=== PATIENT | female | born 1950 | race Caucasian/White ===

== ENCOUNTER 2016-10-22 23:23 | Emergency (ER) | payer OTHER | END 2016-10-23 01:30 | disposition left against medical advice (07) | LOC: ER1 23:23 | DX: Z53.21 Procedure and treatment not carried out due to patient leaving prior to being seen by health care provider (principal) ==

== ENCOUNTER 2016-10-23 13:58 | Emergency (ER) | payer MEDICARE, OTHER ==
[2016-10-23 16:35] LABS: HEMOGLOBIN 13.2 gm/dl (12.3-15.3); RED BLOOD COUNT 4.33 M/UL (4.00-5.10); WHITE BLOOD COUNT 6.7 K/UL (4.5-11.0)
[2016-10-23 17:04] LABS: BUN/CREATININE RATIO 20 (0-10)
== END 2016-10-23 18:10 | disposition home or self-care (01) ==
LOC: ER1 13:58
PROVIDERS: Emergency Medicine
DX: R42 Dizziness and giddiness (principal); I10 Essential (primary) hypertension; Z88.0 Allergy status to penicillin; Z88.5 Allergy status to narcotic agent
CPT/HCPCS: 36415; 74022; 80053; 81001; 82550; 82553; 83605; 83690; 83874; 84484; 85025; 87086; 93005; 96361; 96374; 99284; J2405; J7030

== ENCOUNTER → 2016-11-06 | Outpatient (CLI) | payer MEDICARE, OTHER | LOC: US 13:00 | DX: R41.3 Other amnesia (principal); R42 Dizziness and giddiness; Z86.73 Personal history of transient ischemic attack (TIA), and cerebral infarction without residual deficits; I65.23 Occlusion and stenosis of bilateral carotid arteries | CPT/HCPCS: 70450; 93880 ==

== ENCOUNTER → 2017-01-08 | Outpatient (CLI) | payer MEDICARE, OTHER | LOC: HEART 5 09:22 | DX: I50.9 Heart failure, unspecified (principal); R60.0 Localized edema; R06.00 Dyspnea, unspecified; R53.83 Other fatigue | CPT/HCPCS: 93306 ==

== ENCOUNTER 2020-09-14 08:50 | Emergency (ER) | payer OTHER ==
[~2020-09-14] VITALS: Ht 162.6 cm; Wt 95.3 kg
[2020-09-14 09:37] LABS: HEMOGLOBIN 12.5 gm/dl (12.3-15.3); RED BLOOD COUNT 4.1 M/UL (4.00-5.10); WHITE BLOOD COUNT 5.8 K/UL (4.5-11.0)
[2020-09-14 09:58] LABS: BUN/CREATININE RATIO 17 (0-10)
[2020-09-14] MEDS ORDERED: PROVENTIL HFA6.7 GM INH (10:46)
== END 2020-09-14 13:08 | disposition home or self-care (01) ==
LOC: ER1 08:50
PROVIDERS: Physician Assistant
DX: U07.1 COVID-19 (principal); J45.909 Unspecified asthma, uncomplicated; Z90.49 Acquired absence of other specified parts of digestive tract; Z88.0 Allergy status to penicillin; Z88.5 Allergy status to narcotic agent
CPT/HCPCS: 36415; 71045; 80053; 82550; 82553; 83874; 84484; 85025; 99285; M0239